=== PATIENT | male | born 1955 | race Caucasian/White ===

== ENCOUNTER 2016-12-16 20:44 | Emergency (ER) | payer OTHER ==
[2016-12-16] MEDS ORDERED: Glucagon* 1 MG VIAL IM ONE (20:59)
--- NOTE | 2016-12-16 21:13 | ED ---
Kylah Berry SooYoung, scribed for Moo Trevino MD on 12/16/16 at 2104 . Complex/Multi-Sys Presentation - HPI Summary HPI Summary: A 61 y/o M presents to ED with c/o of bolus stuck in his upper chest/throat onset approx 0433-2250. Pt was eating pot roast and potates. He says it's occurred before but he's always been to clear it by lifting his arms, but it's not clearing this time. He's been unable to eat or drink since then, last attempted to drink a few hours ago. Associated sx: vomiting fluids and phlegm. - History Of Current Complaint Chief Complaint: EDForeignBodyEsophag Hx Obtained From: Patient Onset/Duration: Sudden Onset, Lasting Hours, Still Present Timing: Constant Severity Currently: Mild Associated Signs And Symptoms: Positive: Vomiting - Allergies/Home Medications Allergies/Adverse Reactions: Allergies Allergy/AdvReac Type Severity Reaction Status Date / Time No Known Allergies Allergy Verified 12/16/16 20:50 PMH/Surg Hx/FS Hx/Imm Hx Previously Healthy: Yes Cardiovascular History: Reports: Hx Hypertension Sensory History: Denies: Hx Legally Blind Infectious Disease History: No Infectious Disease History: Denies: Traveled Outside the [place] in Last 30 Days - Family History Known Family History: Positive: Hypertension - father, mother, Diabetes - father Negative: Cardiac Disease - Social History Lives: With Family Review of Systems Negative: Fever Positive: Vomiting, Other - bolus "stuck" in throat/upper chest All Other Systems Reviewed And Are Negative: Yes Physical Exam Triage Information Reviewed: Yes Vital Signs On Initial Exam: Initial Vitals Temp Pulse Resp BP Pulse Ox 98.4 F 79 16 157/105 97 12/16/16 20:47 12/16/16 20:47 12/16/16 20:47 12/16/16 20:47 12/16/16 20:47 Vital Signs Reviewed: Yes Appearance: Positive: Well-Appearing, Pain Distress - mild discomfort Skin: Positive: Warm Head/Face: Positive: Normal Head/Face Inspection Eyes: Positive: NGUYEN ENT: Positive: Hearing grossly normal Neck: Positive: Supple Respiratory/Lung Sounds: Positive: Clear to Auscultation, Breath Sounds Present Cardiovascular: Positive: RRR Abdomen Description: Positive: Nontender, No Organomegaly, Soft Bowel Sounds: Positive: Present Musculoskeletal: Positive: Strength/ROM Intact Neurological: Positive: Alert, Oriented to Person Place, Time Psychiatric: Positive: Anxious Diagnostics - Vital Signs Vital Signs Temp Pulse Resp BP Pulse Ox 12/16/16 20:47 98.4 F 79 16 157/105 97 - Laboratory Lab Statement: Any lab studies that have been ordered have been reviewed, and results considered in the medical decision making process. Re-Evaluation - Re-Evaluation First Eval Change: Improved - food bolus removed by dr pimentel, d/c home by same Complex Multi-Symp Course/Dx - Diagnoses Provider Diagnoses: Foreign body in esophagus Discharge - Discharge Plan Condition: Improved Disposition: HOME Referrals: Axel LAU,Seven Howard [Primary Care Provider] - The documentation as recorded by the Kylah lopez SooYoung accurately reflects the service I personally performed and the decisions made by me, Moo Trevino MD.
[2016-12-16] MEDS ORDERED: Midazolam* 1 MG/ML 10 ML VIAL (10 MG) ONE (22:07)
[2016-12-16] MEDS ORDERED: fentaNYL* 50 MCG/ML 2 ML VIAL (100 MCG VIAL) ONE (22:07)
[2016-12-17 00:49] VITALS: BP 159/99
--- NOTE | 2016-12-17 03:43 | PRO ---
DATE OF PROCEDURE: 12/16/16 - EMERGENCY DEPT PROCEDURE: Upper endoscopy with esophageal biopsy and food impaction removal from the esophagus. MEDICINES: Versed 9 mg IV, Fentanyl 50 mcg IV. NARRATIVE: Mr. Chavez is a 61-year-old gentleman presenting with acute dysphagia after lunch today. He had a beef stew and after 2 or 3 bites was unable to swallow feeling that the food was lodged in the esophagus. He waited a few hours, went through the [facility] and then he was transferred to our emergency room where he was noted to be unable to handle his own secretions. Glucagon was administered, but without any success. The patient does report perhaps 3 or 4 episodes a year of similar symptoms, although they tend to resolve by themselves. He never required an endoscopy. He denies any heartburn and his past medical history is otherwise unremarkable. Due to his symptoms, urgent upper endoscopy is being carried out. DESCRIPTION OF PROCEDURE: After the procedure was discussed with the patient, risks and benefits were outlined, written consent was obtained. The patient was endoscoped in the emergency room. Conscious sedation was administered and a diagnostic video gastroscope was inserted orally and passed into the esophagus where a food impaction was identified in the distal esophagus. The area was suctioned and a netted snare was placed around the food impaction. We passed the net perhaps 3 times removing pieces of the meat until it was completely clear. At that point, we are able to continue to examine to the stomach and duodenal bulb. The patient tolerated the procedure well. There were no immediate complications. DIAGNOSTIC FINDINGS: After the food impaction was removed, careful inspection of the esophagus was notable for furrows suggestive of eosinophilic esophagitis. I therefore performed a biopsy from the mid esophagus. There was a slight stricture noted at the GE junction as well. The stomach was entered. The gastric mucosa was normal. There was no evidence of a hiatal hernia. The pylorus was normal and the duodenal bulb was normal. CONCLUSION: Food impaction (removed) as described above, probable eosinophilic esophagitis and biopsy is obtained. RECOMMENDATIONS: Results were discussed with the patient. I will encourage him to follow up with us to review the biopsies. [id number]/CPS #: [id number] [facility]
== END 2016-12-17 00:46 | disposition home or self-care (01) ==
LOC: ED 20:44
DX: T18.128A Food in esophagus causing other injury, initial encounter (principal); R11.10 Vomiting, unspecified; X58.XXXA Exposure to other specified factors, initial encounter; Y93.89 Activity, other specified; Y92.89 Other specified places as the place of occurrence of the external cause
CPT/HCPCS: 88305; 99284; J1610; J2250; J3010